=== PATIENT | female | born 1955 | race Asian ===

== ENCOUNTER 2017-08-08 07:06 | Emergency (ER) | payer BC ==
[~2017-08-08] VITALS: Ht 30.5 cm; Wt 2.3 kg
[2017-08-08 07:12] VITALS: Ht 30.5 cm; Wt 2.3 kg
[2017-08-08 07:52] VITALS: BP 122/77
== END 2017-08-08 07:52 | disposition home or self-care (01) ==
LOC: ED 07:06
DX: M79.1 Myalgia (principal); R50.9 Fever, unspecified